=== PATIENT | male | born 1985 | race Two or more races ===

== ENCOUNTER 2025-07-24 12:04 | Day surgery (SDC) | payer OTHER ==
[2025-07-23 14:24] LABS: LEUKOCYTE ESTERASE ,URINE NEGATIVE (Neg); NITRITES, URINE NEGATIVE (Neg); OCCULT BLOOD,URINE TRACE-INTACT (Neg)
[2025-07-23 14:26] LABS: MEAN PLATELET VOLUME 8.8 FL (7.4-10.4); PRE OP HEMATOCRIT 44.9 % (42.0-52.0); PRE OP HEMOGLOBIN 15.5 g/dL (14.0-17.9); PRE OP PLATELET COUNT 231 X10'3 (140-440); PRE OP WHITE BLOOD COUNT 6.3 10'3 (4.8-10.8); RED CELL DISTRIBUTION WIDTH 13.2 % (11.5-14.5)
[2025-07-23 14:30] LABS: UA COLLECTION TYPE NON-SPECIFIED
[2025-07-23 14:31] LABS: MUCUS STRANDS FEW /LPF (Neg); SQUAMOUS EPITHELIAL CELL,UR NONE SEEN /LPF (FEW)
[2025-07-23 14:45] LABS: PRE OP ANION GAP 7 (8-16); PRE OP AST 22 U/L (10-37); PRE OP BILIRUB, TOTAL 0.8 MG/DL (0.0-1.0); PRE OP GLUCOSE 98 MG/DL (70-104); PRE OP POTASSIUM 4.2 MMOL/L (3.4-5.1); PRE OP SODIUM 145 MMOL/L (135-145); TOTAL CARBON DIOXIDE 32.0 MMOL/L (24-32)
[2025-07-23 15:27] LABS: PRE OP ALT 31 U/L (30-65)
[2025-07-23 15:34] LABS: CREATININE 0.91 MG/DL (0.60-1.10); eCRCL 105 ML/MIN; eGFR > 90 ML/MIN
[2025-07-24] VITALS (13 sets, daily range): BP systolic 81–118; BP diastolic 40–78; PULSE 60–75; RESP 12–16; TEMP 98; O2SAT 93–99
[~2025-07-24] VITALS: Ht 177.8 cm; Wt 68.2 kg
[~2025-07-24 12:04] MED LIST: NO HOME MEDS; ceFAZolin 2gm/dext,iso 50mL 50 ML IV ONE
[2025-07-24] MEDS ORDERED: morphine 4 MG/ML inj SYRINge IV PRN (12:40)
[2025-07-24] MEDS ORDERED: labetalol 20mg/4ml (5mg/ml) syringe IV PRN (12:40)
[2025-07-24] MEDS ORDERED: fentaNYL/PF 50MCG/1 ML 2ML syringe IV PRN ×2 (12:40)
[2025-07-24] MEDS ORDERED: hydrALAZINE 20mg/ml inj. IV PRN (12:40)
[2025-07-24] MEDS ORDERED: ringers solution, lacted 1,000 ML IV SCH (12:40)
[2025-07-24] MEDS ORDERED: ondansetron/PF 4mg/2ml inj IV PRN (12:40)
[2025-07-24] MEDS: ringers solution, lacted 1,000 ML IV SCH (12:48)
[2025-07-24] MEDS ORDERED: bacitracin 15gm ointment TP ONE (13:05)
[2025-07-24] MEDS ORDERED: BUPIVAcaine 2.5mg/ml inj 50ml vial (contains preservative) ONE (13:05)
[2025-07-24] MEDS ORDERED: LIDOcaine 2% (20mg/ml) 5ml vial ONE (13:06)
[2025-07-24] MEDS ORDERED: ondansetron/PF 4mg/2ml inj ONE (13:06)
[2025-07-24] MEDS ORDERED: fentaNYL/PF 50MCG/1 ML 2ML syringe ONE (13:06)
[2025-07-24] MEDS ORDERED: dexamethasone sod phosphate 4mg/ml inj. ONE (13:06)
[2025-07-24] MEDS ORDERED: midazolam 1 mg/ML 2ml injection ONE (13:06)
[2025-07-24] MEDS ORDERED: propofol inj 20 ML IV ONE (13:06)
[2025-07-24] MEDS ORDERED: acetaminophen 1,000mg/100ml IV 100 ML IV ONE (13:49)
[2025-07-24] MEDS: BUPIVAcaine/PF 2.5 mg/ml (0.25%) 30ml vial IJ ONE (13:50)
[2025-07-24] MEDS: bacitracin 15gm ointment TP ONE (13:50)
--- NOTE | 2025-07-24 14:39 | OPERATIVE REPORT ---
DATE OF SURGERY: 07/24/2025 DICTATING PHYSICIAN: SUNIL RENAE DPM PREOPERATIVE DIAGNOSES: Right foot fifth metatarsal fracture, right foot pain. POSTOPERATIVE DIAGNOSES: Right foot fifth metatarsal fracture, right foot pain. PROCEDURES: Open reduction and internal fixation of fifth metatarsal base fracture of the right foot. SURGEON: Sunil Renae DPM [employer]OLOGICAL PLANT OPERATOR: Kwaku Anderson DPM fellow, assistance was needed to decrease tourniquet time and help with efficiency and retraction throughout the entirety of the procedure. ANESTHESIA: General anesthesia. HEMOSTASIS: None. COMPLICATIONS: None. SPECIMENS: None. ESTIMATED BLOOD LOSS: Less than 5 mL. HARDWARE: A 4.5 mm DJO partially threaded cannulated screw. INDICATIONS: The patient presented to the office with the above-listed complaints which have been unresponsive to conservative treatment options. Thus, surgical options have been offered along with all potential risks, complications, and surgical outcomes being fully explained to the patient's level of understanding. No guarantees were given. Clinically and radiographic data correlate with above diagnosis. The patient presented with a fifth metatarsal base fracture that was in the plane of the [place] distribution. We talked to the patient about the risks and benefits of nonoperative versus operative treatment options. Ultimately, the patient elected for surgical intervention. We did talk to him about the percutaneous approach and this is what the patient elected to undergo. He understands that there are risks and benefits of both options and he wished to proceed. DESCRIPTION OF PROCEDURE: The patient was brought to the operating room and placed on the operating table in the supine position. The patient was induced under general anesthesia and the foot and ankle were prepped and draped in the usual aseptic fashion. We then injected 30 mL of 0.25% Marcaine plain into the foot. After this, I placed a tourniquet but never inflated it and preoperative antibiotics were given and dosed appropriately and a timeout was called. Open reduction internal fixation of fifth metatarsal base fracture of the right foot. We then brought our attention to the fifth metatarsal base fracture where intraoperative fluoroscopic imaging confirmed our positioning. We then percutaneously placed a guidewire from the base of the fifth metatarsal entering into the shaft of the bone and then after positioning, we then drilled and measured and used standard AO technique with the workforce services representative in the room in order to place a 4.5 partially threaded headed DJO screw with excellent compression, stability, and placement of our hardware. This was all intramedullary. The fracture was reduced appropriately, so therefore, we took final fluoroscopic imaging and pulled our guidewire and then we flushed and closed all of our incisions and closed in a layered fashion. 3-0 nylon was used in a simple interrupted suture technique for the one incision. After this, we then dressed with triple antibiotic followed by Adaptic, 4 x 4s and Webril. The patient was placed into a well-padded posterior splint with the foot held at neutral position. The tourniquet that was not inflated was then removed and the patient was taken out of general anesthesia and then placed in PACU with vital signs stable and vascular status intact to the operative foot. The patient is going to be nonweightbearing to operative foot and was instructed to follow up with me in approximately 1 to 2 weeks after surgery. The entire case was performed in a teaching fashion. I was available pre and postoperatively to answer questions of the patient and his family. SUNIL RENAE DPM TID: [id number] RECEIPT: [id number] CHYNA/ALEJANDRO
== END 2025-07-24 16:05 | disposition home or self-care (01) ==
LOC: PAS 12:04
PROVIDERS: ATTEND Podiatrist Foot & Ankle Surgery
DX: S92.351A Displaced fracture of fifth metatarsal bone, right foot, initial encounter for closed fracture (principal); Z79.1 Long term (current) use of non-steroidal anti-inflammatories (NSAID); Z79.899 Other long term (current) drug therapy; Z98.818 Other dental procedure status; X50.1XXA Overexertion from prolonged static or awkward postures, initial encounter; Y93.89 Activity, other specified; Y92.89 Other specified places as the place of occurrence of the external cause; Y99.8 Other external cause status
CPT/HCPCS: 28485; 36415; 73620; 80053; 81001; 82948; 85025; A6222; C1713; J0131; J1100; J2003; J2250; J2405; J2704; J3010; J3490; J7030; J7120; Z7506; Z7512; 76000; A4618; A6449; A7000